=== PATIENT | female | born 1995 | race Hispanic/Latino ===

== ENCOUNTER 2018-04-05 02:56 | Inpatient (IN) | payer OTHER, SELFPAY ==
[2018-04-05 03:21] LABS: Bilirubin Negative (Negative); Blood, Urine Moderate (Negative); Clarity CLEAR (Clear); Glucose, Urine (Dipstick) 100 mg/dL (Negative); Leukocyte Negative (Negative); Nitrite Negative (Negative); Protein, Urine (Dipstick) Trace mg/dL (Neg-Trace); Specific Gravity, Urine 1.009 (1.002-1.036); Urobilinogen 0.2 mg/dL (0.2-1.0); pH, Urine 7.5 (5.0-9.0)
[2018-04-05 03:23] LABS: Bacteria/HPF None Seen HPF (None Seen); Pathc Cast-AUWi Flag 0.43 (0-2.49); RBC/HPF 21-50 HPF (0-3); WBC/HPF 0-3 HPF (0-3)
[2018-04-05 03:28] LABS: Pregnancy Test - Urine (BHCG) Negative (Negative); Pregu Control Background? CLEAR/WHITE (CLR/WHITE); Pregu Control Bar Appear? YES (CONTROL BAR); Specific Gravity 1.009 (1.002-1.036)
[2018-04-05 03:33] LABS: Hyaline Casts/LPF NONE SEEN LPF (0-3 Hyaline); Renal Epithelial None Seen HPF (0-3); Transitional Epithelial NONE SEEN HPF (0-3)
[2018-04-05 03:35] LABS: Hemoglobin 17.1 g/dL (12.0-16.0); Mean Corpuscular HGB CONC 36.2 g/dL (32.0-36.0); Mean Corpuscular Hemoglobin 33.9 pg (25.0-35.0); Mean Corpuscular Volume 93.8 fL (78.0-98.0); Mean Platelet Volume 7.7 fL (7.4-10.4); Platelet Count 234 thou/uL (130-400); RBC Distribution Width 11.9 % (11.5-14.5); Red Blood Cell (RBC) Count 5.04 mill/uL (4.00-5.20); White Blood Cell (WBC) Count 22.7 thou/uL (4.8-10.8)
[2018-04-05 03:45] LABS: ALT (SGPT) 26 U/L (8-55); AST (SGOT) 18 U/L (5-34); Albumin 5.1 g/dL (3.5-5.0); Alkaline Phosphatase 108 U/L (40-150); Anion Gap 22 mmol/L (10-20); BUN (Urea Nitrogen) 13 mg/dL (7.0-18.7); Bilirubin, Total 1.2 mg/dL (0.2-1.2); Calc. Creatinine Clearance 0 mL/min (70-130); Calcium 10.3 mg/dL (7.8-10.44); Carbon Dioxide 17 mmol/L (22-29); Chloride 104 mmol/L (98-107); Estimated GFR-MDRD 51; Globulin 3.2 g/dL (2.4-3.5); Glucose 129 mg/dL (70-105); Lipase 17 U/L (8-78); Potassium 4.1 mmol/L (3.5-5.1); Protein, Total 8.3 g/dL (6.0-8.3); Sodium 139 mmol/L (136-145)
[2018-04-05 04:19] LABS: Band 14 % (5-11); Lymphocytes 6 % (28-48); MDiff Complete? YES; Monocytes 7 % (0-4); Neutrophil 73 % (31-61)
[2018-04-05] MEDS ORDERED: Ondansetron PF 4 MG/2 ML Vial ONE (04:28)
[2018-04-05] MEDS ORDERED: Ketorolac Tromethamine 30 MG/ML VIAL ONE (07:01)
--- NOTE | 2018-04-05 08:45 | CT ---
PRELIMINARY REPORT/[facility]/EMERGENTY AFTER-HOURS PROCEDURE Addendum created by Arcadio Guevara MD on 04/05/2018 5:27 AM Central Time ([place]) Findings discus sed with TENA KELLER MD at time of interpretation. Initial Report created on 04/05/2018 5:17 AM Central Time ([place] & [place]) CT Abdomen and Pelvis With Intravenous Contrast EXAM DATE/TIME: 04/05/2018 4:44 AM CLINICAL HISTORY: 22 years old, female; Pain; Abdominal pain; Generalized; Prior surgery; Surgery date: 6+ months; Surg melvin type: Appendectomy; Patient HX: Er 2; Iv only; 22 yo f presents to ed with abdominal pain. PT rep orts sharp abdominal pain that started around 8 pm last night after she ate. PT reports nausea and vomiting that started yesterday morning, vomited around 20 times throughout the day and hasn't be en able to keep any food down. PT reports her mouth is really dry, reports dizziness, reports she has been urinating a little less than usual. PT denies constipation, denies diarrhea, denies vaginal dis charge, denies back pain. PT denies HX of similar pain, denies any sick contacts, denies HX of stds, denies eating any new/unusual foods, denies any chronic medical issues. PT reports she had her append ix removed when she was 14 years old. PT reports one previous , normal . Lmp was last week, PT reports control implant in arm that was put in about 2 years ago. TECHNIQUE: Axial computed tomography images of the abdomen and pelvis with intravenous contrast. Coronal reformatted images were created and reviewed. COMPARISON: No relevant prior studies available. FINDINGS: Lower thorax: There is incompletely visualized pneumomediastinum/medial left pneumothorax. Distal eso phagus is unremarkable. ABDOMEN: Liver: Hepatic steatosis. Gallbladder and bile ducts: Normal. No calcified stones. No ductal dilation. Pancreas: Normal. No ductal dilation. Spleen: Normal. No splenomegaly. Adrenals: Normal. No mass. Kidneys and ureters: Normal. No hydronephrosis. Stomach and bowel: No bowel wall thickening or intestinal obstruction. Appendix: Prior appendectomy. PELVIS: Bladder: Unremarkable as visualized. Reproductive: 1.7 cm follicle/cyst of the left ovary. ABDOMEN and PELVIS: Intraperitoneal space: Normal. No free air. No significant fluid collection. Bones/joints: No acute fracture. No dislocation. Soft tissues: Unremarkable. Vasculature: Normal. No abdominal aortic aneurysm. Lymph nodes: Normal. No enlarged lymph nodes. IMPRESSION: 1. There is incompletely visualized pneumomediastinum/medial left pneumothorax. Distal esophagus is u nremarkable. Recommend chest CT. 2. 1.7 cm follicle/cyst of the left ovary. Thank you for allowing us to participate in the care of your patient. Dictated and Authenticated by: Arcadio Guevara MD 04/05/2018 5:17 AM Central Time ([place] & [place]) FINAL REPORT CT ABDOMEN AND PELVIS WITH IV CONTRAST PERFORMED ON AN EMERGENCY BASIS: Date: 04/05/18 Time: 0446 hours HISTORY: Abdominal pain. Nausea and vomiting. FINDINGS: Findings agree with the preliminary report by [facility]. No evidence of bowel obstruction or inflammation. Postoperative changes at the cecum. Incompletely visualized gas in the mediastinum and left pleura s pace on the superiormost images. CT chest is pending. POS: [facility]
--- NOTE | 2018-04-05 08:56 | CT ---
PRELIMINARY REPORT/[facility]/EMERGENTY AFTER-HOURS PROCEDURE CT Chest Without Intravenous Contrast EXAM DATE/TIME: 04/05/2018 5:48 AM CLINICAL HISTORY: 22 years old, female; Abnormal findings; Abnormal radiologic exam of lung or chest; Patient HX: Er 2; Previous abd/pel scan shows mediastinal pneumothorax; Suggested CT scan of chest with oral contrast to eval for esophageal leak. TECHNIQUE: Axial computed tomography images of the chest without intravenous contrast. Coronal and sagittal reformatted images were created and reviewed. COMPARISON: CT Abdomen Pelvis W Con 04/05/2018 4:44:47 AM FINDINGS: Lungs: The lungs are clear. Pleural space: Loculated pneumothorax in the medial aspect of the left lung base is less likely. No o ther pneumothorax is identified. Heart: Normal. No cardiomegaly. No pericardial effusion. Mediastinum: There is pneumomediastinum. The mediastinum in the lower thorax demonstrates no signific ant change. Aorta: Normal. No aortic aneurysm. Lymph nodes: Unremarkable. No enlarged lymph nodes. Bones/joints: Unremarkable. No acute fracture. Soft tissues: Unremarkable. IMPRESSION: Pneumomediastinum of uncertain etiology. Loculated pneumothorax in the left lung base is less likely. Thank you for allowing us to participate in the care of your patient. Dictated and Authenticated by: Mahendra Lemus MD 04/05/2018 6:58 AM Central Time ([place] & [place]) FINAL REPORT EMERGENCY AFTER HOURS CT THORAX WITH ORAL CONTRAST: Date: 04/05/18 HISTORY: Abnormal CT scan abdomen, demonstrating pneumomediastinum at the visualize lung bases also obtained o n 04/05/18. IMPRESSION: 1. Pneumomediastinum of uncertain etiology. No extravasation of contrast is seen within the mediasti num. 2. There was also mention of a loculated pneumothorax at left lung base on prior CT of abdomen. This is probably related to pneumomediastinum as opposed to loculated pneumothorax at the left lung base. 3. Lungs are clear. 4. Limited evaluation of the mediastinal structures due to lack of intravenous contrast. 5. Residual contrast within the kidneys related to prior contrasted exam. Findings are in agreement with the preliminary report by [facility]. POS: [facility]
[2018-04-05] MEDS ORDERED: Ondansetron ODT 4 MG TAB ONE (11:14)
[2018-04-05] MEDS ORDERED: Pantoprazole 40 MG VIAL ONE (11:36)
[2018-04-05] MEDS ORDERED: Piperacillin/Tazobactam 3.375 GM VIAL ONE (11:36)
[2018-04-05] MEDS ORDERED: ISOVUE-370 76%-LOCM 1 ML ONE (12:54)
[2018-04-05] MEDS ORDERED: Iopamidol 370 76% 50 ML VIAL FS ONE (12:54)
[2018-04-05] MEDS ORDERED: MD-Gastroview 120 ML BOT ONE (13:05)
--- NOTE | 2018-04-05 13:21 | HP ---
PRIMARY CARE PROVIDER: None. Referred to [facility] by [facility]. HISTORY OF PRESENT ILLNESS: The patient developed nausea and vomiting yesterday morning, vomited abo ut 20 times and last night she developed severe generalized abdominal pain. She came to the hospital this morning. She has had no fever, but she has had chills and a question of sweats. She has had n o bowel movement at all with this. PAST MEDICAL HISTORY: None. MEDICATIONS: None. ALLERGIES: None. PAST SURGICAL HISTORY: Appendectomy at 14. Mother and father are alive and well. No inheritable di seases in her family. SOCIAL HISTORY: She is single. Smokes none. Drinks alcohol on weekends. REVIEW OF SYSTEMS: GENERAL: No headaches, dizziness or fainting. EYES: She has had blurred vision at times. She thinks she needs glasses. No double vision or flashing lights. EAR, NOSE, AND THROA T: No ear pain or drainage. No nasal bleeding. No trouble swallowing. CARDIAC: She has a vague d iscomfort in her chest that she describes as pleuritic with deep breathing, no paroxysmal nocturnal d yspnea or orthopnea. RESPIRATORY: No cough, wheezing or asthma. GASTROINTESTINAL: See present ill ness. GENITOURINARY: No hematuria, dysuria or nocturia. MUSCULOSKELETAL: No pain or swelling in h er arms or legs. NEUROLOGIC: No strokes, seizures or focal weakness. PSYCHIATRIC: No anxiety or d epression. SKIN: No bruises, bleeding or rash. HEME/LYMPH: No tender or swollen lymph nodes in ax illa, inguinal or cervical area. PHYSICAL EXAMINATION: GENERAL: She is an alert, pleasant, cooperative young woman in no distress. VITAL SIGNS: Blood pressure 130/71, pulse 89, respirations 18, temperature 98.2, O2 sat 98% on room air. HEENT: Examination of her head, eyes, ears, nose, and throat reveal pupils equal, round, and reactiv e to light. Extraocular movements are intact. Sclerae are white. Tympanic membranes clear. Nose i s clear. Oral mucous membranes are wet. NECK: Supple without jugular venous distention, adenopathy or thyromegaly. CHEST: Clear to auscultation and percussion. HEART: Regular rate and rhythm. First and second heart sounds are clear. There are no murmurs or g allops. ABDOMEN: Soft, bowel sounds are normal. There is no hepatosplenomegaly, no mass, no rebound, no bru its. She had very minimal periumbilical tenderness. Exam otherwise normal. EXTREMITIES: Reveal no cyanosis, clubbing or edema. SKIN: No bruises, bleeding or rash. HEME/LYMPH: No tender or swollen lymph nodes in axilla, inguinal or cervical area. PULSES: Carotid, radial, femoral, and dorsalis pedis pulses intact and symmetric. NEUROLOGICAL: Cranial nerves II-XII are intact. Deep tendon reflex is symmetric. LABORATORY DATA: Comp metabolic profile; sodium 139, potassium 4.1, CO2 17, BUN 13 and creatinine 1. 32. Blood sugar 129. Liver function tests normal. Urine; few red cells, 21-50. No white cells. W tray count 22,700 without left shift, hemoglobin 15.1, platelet count 234,000 IMAGING DATA: CT of the chest reveals pneumomediastinum reviewed by me. Abdomen and pelvis CT, cyst on left ovary and completely visualized pneumomediastinum. ADMITTING DIAGNOSES: 1. Pneumomediastinum. 2. Nausea and vomiting. 3. Abdominal pain. 4. Acute renal failure. PLAN: 1. Admit on IV fluids. 2. Blood cultures, IV Zosyn. 3. Intravenous pain medicines. 4. Will require consultations probably with GI and Cardiovascular Surgery.
--- NOTE | 2018-04-05 14:14 | CON ---
DATE OF CONSULTATION: 04/05/2018 REQUESTING PHYSICIAN: Susana Nogueira D.O. HISTORY OF PRESENT ILLNESS: This is a 22-year-old woman who presented to emergency departme nt today. The patient gives a history of insidious onset of nausea and multiple nonbilious emesis wh ich started yesterday morning upon awakening. The patient recorded over 20 episodes of small volume emesis. This was then followed by generalized abdominal pain. Patient denies any diarrhea, upper re spiratory symptoms, dyspnea or syncope. PAST MEDICAL HISTORY: Unremarkable. SURGICAL HISTORY: Pertinent for appendectomy at age 14. SOCIAL HISTORY: Patient is single, lives independently. 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 She admits to a binge drinking over the weekend. In fact, she had 18 beers on Thursday preceding the onset of emesis the . She denies any cigarette smoking or other illicit drug abuse. FAMILY HISTORY: Patient denies any family history of diabetes mellitus, hypertension, heart disease or cancer. PREHOSPITALIZATION MEDICATIONS: None except for implanted control. ALLERGIES: Patient denies any known drug allergies. REVIEW OF SYSTEMS: Ten point review of systems essentially unremarkable except for as stated in past medical history and chief complaint. PHYSICAL EXAMINATION: GENERAL: This reveals a 22-year-old normally developed woman who is otherwise coherent and interacti ve and appears stated age. The patient is alert and oriented x3, appears to be in no acute distress at the time of my evaluation. VITAL SIGNS: Currently includes blood pressure is 114/84, pulse is 92, respiratory rate is 18, tempe rature is 98.1 degrees Fahrenheit although present temperature was 99 degrees Fahrenheit. Oxygen sat uration currently is 97% on room air. HEENT: Reveals normocephalic and atraumatic. Pupils are equal, round, reactive to light and accommo dation. Extraocular muscles are intact bilaterally. No sclerae icterus present. Oral mucosa is pin k and moist. No lesions are noted. NECK: Supple. No palpable lymphadenopathy or thyromegaly present. HEART: Reveals regular rate and rhythm, no murmurs or gallops auscultated. LUNGS: Clear to auscultation bilaterally. Her breathing is regular and unlabored. ABDOMEN: Soft with mild infraumbilical right lower quadrant tenderness to palpation with no gross re bound tenderness present. Liver and spleen are nonpalpable below costal margins. EXTREMITIES: Reveals 2+ radial and pedal pulses bilaterally. No ankle edema is present. NEUROLOGIC: Examination reveals no focal deficits present. PERTINENT LABORATORY DATA: Today includes CBC with 22,700 white blood cells, hemoglobin and hematocr it are 17.1 and 47.3 respectively, platelet count is 234,000. Metabolic profile; sodium 139, potassi um is 4.1, chloride is 104, bicarbonate is 17, BUN 13, creatinine is 1.32, glucose 129. Total biliru bin is 1.2, AST and ALT 18 and 26 respectively. Alkaline phosphatase 108. Serum lipase is normal at 17. IMAGING DATA: 1. I have personally reviewed the CT scan of the abdomen and pelvis which is unremarkable for any ac [place] intraabdominal pathology. There is, however, a small pneumomediastinum which was incompletely de fined. 2. CT scan of the chest is remarkable for left pneumomediastinum. There is no inflammation around t he esophagus or trachea. 3. Upper GI was also performed which reveals no contrast extravasation to suggest esophageal injury. IMPRESSION: Small pneumomediastinum of undetermined etiology, likely secondary to small Osiris-Azul s tear. Currently, patient is essentially asymptomatic. PLAN: 1. No acute surgical indication for this patient at this time. I will continue with clear liquid di et and serial physical examination. 2. Recommend starting a broad spectrum antibiotic therapy during patient's hospital admission. [facility] will continue to follow along with this patient and make further recommendations as nav ellis.
--- NOTE | 2018-04-05 14:35 | RAD ---
SINGLE CONTRAST UPPER GI: Date: 04/05/18 CLINICAL HISTORY: Pneumomediastinum. Recent recurrent episodes of vomiting. FINDINGS: Backbreaker imaging does reveal evidence of pneumomediastinum. Upon administration of radiopaque contrast, there is free passage through the esophagus and into the stomach without abnormal leakage. Contrast o pacified stomach and proximal small bowel are unremarkable. IMPRESSION: 1. No fluoroscopic evidence of esophageal tear. 2. Pneumomediastinum is again seen. Case discussed with patient's surgeon, Sonu Su D.O., at time of interpretation. CODE CR. POS: [facility]
[2018-04-05] MEDS ORDERED: traMADol HCl 50 MG TAB PO PRN (15:55)
[2018-04-05] MEDS ORDERED: Acetaminophen 650 MG Suppository PR PRN (15:55)
[2018-04-05] MEDS: Sodium Chloride 0.9% 1,000 ML IV SCH (16:16)
[2018-04-05 16:43] VITALS: BMI 22.7
--- NOTE | 2018-04-05 16:57 | CON ---
DATE OF CONSULTATION: 04/05/2018 GI INPATIENT CONSULTATION NOTE REQUESTING PHYSICIAN: Dr. Barnes. REASON FOR CONSULTATION: Pneumomediastinum with nausea and vomiting. HISTORY OF PRESENT ILLNESS: Quynh Aguilar is a very pleasant 22-year-old woman with no significant p ast medical history. She had an appendectomy at age 14. She has no chronic gastrointestinal symptom s. Yesterday morning, she had the acute onset of nausea and vomiting. There has been some associate d periumbilical abdominal discomfort with this, but she estimates she vomited over 20 times since sym ptom onset yesterday morning. This morning, she additionally started to have some pressure type pain in the chest and presented for further evaluation. Through all of this, there has been no diarrhea or constipation. No fever. She denies any sick contacts. She denies any nonsteroidal anti-inflamma tory drug use. Her weight has been stable recently. Upon presentation, she was found to have leukoc ytosis with WBC up to 22.[address] imaging of the chest, abdomen, and pelvis demonstrates pneumomedias tinum. The patient has been started on IV Zosyn. Her nausea and pain are well controlled. At this point, she is being admitted to the hospital. Dr. Su has also seen her. She had an upper GI cont rast series just performed. The official read is not back on this, but on my review of the images, i t does not demonstrate any contrast extravasation from the esophagus. REVIEW OF SYSTEMS: Full review of systems including constitutional, head, eyes, ears, nose, throat, GI, , cardiovascular, respiratory, musculoskeletal, and neurologic systems is negative except as no ashlee in the HPI. PAST MEDICAL HISTORY: None. PAST SURGICAL HISTORY: Appendectomy at age 14. ALLERGIES: None. MEDICATIONS: None. FAMILY HISTORY: Negative for gastrointestinal malignancy. SOCIAL HISTORY: She is single. No tobacco or alcohol use. She has a Nexplanon implant for contrace ption. PHYSICAL EXAMINATION: VITAL SIGNS: Blood pressure 130/71, pulse 89, temperature 98.2, 98% oxygen saturation on room air. GENERAL: Awake, alert, and oriented, in no acute distress. SKIN: No jaundice, no rashes were palpable. EYES: No scleral icterus. Extraocular movements intact. ENT: Mucous membranes moist, no oral lesions. LYMPH: No submandibular or supraclavicular lymphadenopathy. THYROID: Nontender to palpation. HEART: Regular rate and rhythm. LUNGS: Clear to auscultation bilaterally. ABDOMEN: Bowel sounds are present, soft, some mild tenderness in the periumbilical area, but no guar ding, rebound tenderness. EXTREMITIES: No peripheral edema. VESSELS: Radial pulses 2+ bilaterally. NEUROLOGICAL: Cranial nerves II-XII intact bilaterally. No focal deficits. LABORATORY STUDIES: WBC elevated to 22.7, hemoglobin 17.1, platelets 234. Sodium 139, potassium 4.1 , BUN 13, creatinine 1.32, total bilirubin 1.2, alkaline phosphatase 108, AST 18, ALT 26, lipase 17. Urine test negative, 21-50 urine RBCs, 0-3 urinary WBCs. ASSESSMENT AND PLAN: 1. Pneumomediastinum. 2. Nausea and vomiting, acute. The patient's pneumomediastinum likely does represent a small esopha geal perforation, but note the contrast esophagram demonstrates no leak. I have seen the patient and also discussed the case with Dr. Su. I do not think there is anything to be gained by endoscopic investigation, in fact, I would avoid this if at all possible. The patient will be on a clear liqui d diet with IV antibiotics and observation overnight. The patient is advised to let us know if she h as worsening symptoms. Continue symptomatic control for nausea. GI will follow along. Thank you for the consultation. Please call with questions or concerns.
[2018-04-05] MEDS: Piperacillin/Tazobactam 3.375 GM in Sodium Chloride 0.9% 100 ML IVPB SCH ×2 (17:27→23:32)
[2018-04-06] MEDS: Sodium Chloride 0.9% 1,000 ML IV SCH ×2 (01:29→07:14)
[2018-04-06 04:41] LABS: #Eosinphils 0.1 thou/uL (0.0-0.7); #Lymphocytes 2.3 thou/uL (1.20-3.40); #Monocytes 0.7 thou/uL (0.11-0.59); #Neutrophils 6.9 thou/uL (1.40-6.50); %Basophils 0.3 % (0.0-1.0); %Eosinophils 1.2 % (0.0-10.0); %Lymphocytes 22.4 % (28.0-48.0); %Monocytes 6.9 % (0.0-4.0); %Neutrophils 69.2 % (31.0-61.0); Mean Corpuscular HGB CONC 35.2 g/dL (32.0-36.0); Mean Corpuscular Hemoglobin 33.9 pg (25.0-35.0); Mean Corpuscular Volume 96.1 fL (78.0-98.0); Mean Platelet Volume 7.2 fL (7.4-10.4); Platelet Count 143 thou/uL (130-400); RBC Distribution Width 11.9 % (11.5-14.5); Red Blood Cell (RBC) Count 3.84 mill/uL (4.00-5.20)
[2018-04-06] MEDS: Piperacillin/Tazobactam 3.375 GM in Sodium Chloride 0.9% 100 ML IVPB SCH ×4 (05:34→23:57)
[2018-04-06 05:51] LABS: Anion Gap 13 mmol/L (10-20); BUN (Urea Nitrogen) 10 mg/dL (7.0-18.7); Calc. Creatinine Clearance 50 mL/min (70-130); Calcium 8.7 mg/dL (7.8-10.44); Carbon Dioxide 19 mmol/L (22-29); Chloride 113 mmol/L (98-107); Estimated GFR-MDRD 44; Glucose 91 mg/dL (70-105); Potassium 3.7 mmol/L (3.5-5.1); Sodium 141 mmol/L (136-145)
[2018-04-06] MEDS: Ondansetron PF 4 MG/2 ML Vial IVP PRN ×3 (07:13→20:40)
[2018-04-06] MEDS: Sodium Bicarbonate 100 MEQ in Dextrose 5% in Water 1,000 ML IV SCH ×2 (08:31→21:05)
[2018-04-06] MEDS: Pantoprazole 40 MG VIAL IVP SCH ×2 (09:01→20:45)
--- NOTE | 2018-04-06 09:25 | RAD ---
RADIOGRAPH OF CHEST FRONTAL VIEW: Date: 04/06/18 CLINICAL HISTORY: Pneumomediastinum, follow-up. FINDINGS: Mild degree of pneumomediastinum remains. No free air beneath the hemidiaphragms. Lungs are clear. Ca rdiac silhouette is normal in size. Osseous structures are intact. IMPRESSION: Mild pneumomediastinum remains. POS: [facility]
--- NOTE | 2018-04-06 10:21 | PRG ---
DATE OF SERVICE: 04/06/2018 SUBJECTIVE: Ms. Aguilar is a 22-year-old woman admitted yesterday following multiple bouts o f emesis associated with pneumomediastinum. The patient had a negative esophagram. She was admitted for serial physical examination. She was placed on clear liquid diet overnight. This morning, she awoke with 8/10 chest pain with deep inspiration. She denies any abdominal pain. Denies any fevers or chills. PHYSICAL EXAMINATION: VITAL SIGNS: This morning includes blood pressure 119/86, pulse 64, respiratory rate is 16, maximum temperature in the last 24 hours is 98.4 degrees Fahrenheit, oxygen saturation 98% on room air. HEART: Reveals regular rate and rhythm. LUNGS: Clear to auscultation bilaterally. ABDOMEN: Soft, nontender and nondistended. NEUROLOGIC: Reveals no focal deficits present. LABORATORY DATA: Laboratory findings today includes CBC with markedly improved white blood cell coun t at 10,000, in contrast to 22,700 yesterday. Hemoglobin and hematocrit are stable at 13.0 and 36.9 respectively. Platelet count is also stable at 143,000. Metabolic profile; sodium 141, potassium 3. 7, chloride is 113, bicarbonate is 19, BUN 10, creatinine is now elevated at 1.50. This is a change from yesterday's BUN and creatinine of 13 and 1.32 respectively. Please note that the patient's last hospitalization in 2012, creatinine was normal at 0.75. IMAGING DATA: I have personally reviewed chest x-ray, which was obtained this morning which reveals small residual pneumomediastinum. IMPRESSION: 1. Post-admission day #1, status post poly emesis. 2. Residual small pneumomediastinum. 3. Acute kidney injury. This is likely secondary to contrast nephropathy induced acute tubular necr osis. PLAN: 1. Patient was placed on bowel rest. We will continue IV antibiotics. 2. I will start bicarbonate infusion and monitor patient's urinary output and repeat chemistry tomor row for resolution of this acute kidney injury. Above findings and plan discussed with the patient who indicates understanding of information given. I have answered her questions.
[2018-04-06] MEDS: traMADol HCl 50 MG TAB PO PRN ×2 (11:11→18:33)
--- NOTE | 2018-04-06 12:37 | PDOC.PN ---
- Subjective Encounter Start Date: 04/06/18 Encounter Start Time: 12:34 Subjective: min abd discomfort - Objective Resuscitation Status: Resuscitation Status FULL:Full Resuscitation MAR Reviewed: Yes Vital Signs & Weight: Vital Signs (12 hours) Temp Pulse Resp BP Pulse Ox 04/06/18 11:55 98.3 F 54 L 18 98/57 L 98 04/06/18 10:45 98.3 F 73 16 111/72 99 04/06/18 07:46 98.4 F 64 16 119/86 98 04/06/18 07:43 97.5 F L 66 16 04/06/18 03:20 97.5 F L 66 16 116/66 100 Weight Weight 116 lb 6.4 oz I&O: 04/05/18 04/06/18 04/07/18 06:59 06:59 06:59 Intake Total 2295 Output Total 675 Balance 1620 Result Diagrams: 04/06/18 04:27 04/06/18 04:27 Radiology Reviewed by me: Yes (cxr-pneumomediastinum stable) Phys Exam - Physical Examination Neck: no JVD Respiratory: clear to auscultation bilateral Cardiovascular: RRR, no significant murmur Gastrointestinal: soft, positive bowel sounds Musculoskeletal: no edema Dx/Plan (1) Pneumomediastinum Code(s): J98.2 - INTERSTITIAL EMPHYSEMA Status: Acute (2) Nausea & vomiting Code(s): R11.2 - NAUSEA WITH VOMITING, UNSPECIFIED Status: Acute Qualifiers: Vomiting type: unspecified Vomiting Intractability: unspecified Qualified Code(s): R11.2 - Nausea with vomiting, unspecified (3) Acute kidney failure Status: Acute Qualifiers: Acute renal failure type: unspecified Qualified Code(s): N17.9 - Acute kidney failure, unspecified (4) Abdominal pain Code(s): R10.9 - UNSPECIFIED ABDOMINAL PAIN Status: Acute Qualifiers: Abdominal location: generalized Qualified Code(s): R10.84 - Generalized abdominal pain - Plan NPO, iv fluids, rpt BMP in AM -: cont iv antibx -: discussed with Dr Su * .
--- NOTE | 2018-04-06 14:09 | PRG ---
DATE OF SERVICE: 04/06/2018 SUBJECTIVE: Ms. Aguilar is feeling a bit better today. This morning, she did have some temporary wor sening of chest pain, but no shortness of breath, no cough, no fever. She complains of some mild per iumbilical abdominal discomfort. She was made n.p.o. this morning and continues on IV antibiotics. No further nausea or vomiting. OBJECTIVE: VITAL SIGNS: Temperature 98.3, pulse 54, blood pressure 98/57, 98% oxygen saturation on room air. GENERAL: No acute distress. HEART: Regular rate and rhythm. LUNGS: Clear to auscultation bilaterally. ABDOMEN: Soft and nontender to palpation. EXTREMITIES: No peripheral edema. LABORATORY STUDIES AND IMAGING: WBC came down to 10.0, hemoglobin 13.0, platelets 143. Sodium 141, potassium 3.7, BUN 10, creatinine 1.50. Chest x-ray from this morning demonstrates a mild residual p neumomediastinum and is otherwise normal. Official read on her upper GI contrast exam from yesterday confirms no fluoroscopic evidence of any esophageal tear, free passage of contrast through the esoph danielle and into the stomach without leakage. ASSESSMENT AND PLAN: 1. Pneumomediastinum. 2. Nausea and vomiting, improved. The patient continues on IV antibiotics and bowel rest. Still no indication for upper endoscopic examination in this context. Appreciate surgical service assistance . GI will continue to follow. Please call with questions or concerns.
[2018-04-06] MEDS ORDERED: Promethazine HCl 25 MG in Sodium Chloride 0.9% 50 ML IVPB PRN (22:38)
[2018-04-07] MEDS: Piperacillin/Tazobactam 3.375 GM in Sodium Chloride 0.9% 100 ML IVPB SCH (05:47)
[2018-04-07 06:09] LABS: Anion Gap 10 mmol/L (10-20); BUN (Urea Nitrogen) 7 mg/dL (7.0-18.7); Calc. Creatinine Clearance 87 mL/min (70-130); Calcium 8.8 mg/dL (7.8-10.44); Carbon Dioxide 32 mmol/L (22-29); Chloride 102 mmol/L (98-107); Estimated GFR-MDRD 84; Glucose 104 mg/dL (70-105); Magnesium 1.9 mg/dL (1.7-2.2); Sodium 141 mmol/L (136-145)
[2018-04-07 06:13] LABS: Potassium 2.9 mmol/L (3.5-5.1)
[2018-04-07] MEDS ORDERED: Potassium Chloride 40 MEQ in Premix Bag 1 BAG IVPB SCH (06:15)
[2018-04-07 06:47] LABS: Hemoglobin 12.9 g/dL (12.0-16.0); Mean Corpuscular HGB CONC 35.7 g/dL (32.0-36.0); Mean Corpuscular Volume 95.2 fL (78.0-98.0); Mean Platelet Volume 7.6 fL (7.4-10.4); Platelet Count 161 thou/uL (130-400); RBC Distribution Width 11.6 % (11.5-14.5); Red Blood Cell (RBC) Count 3.78 mill/uL (4.00-5.20); White Blood Cell (WBC) Count 8.4 thou/uL (4.8-10.8)
[2018-04-07 07:17] LABS: Band 7 % (5-11); Eosinophils 2 % (0-10); Lymphocytes 26 % (28-48); MDiff Complete? YES; Monocytes 2 % (0-4); Neutrophil 60 % (31-61); RBC Morphology Normal; Reactive Lymphocytes 3 % (0-10)
[2018-04-07] MEDS: Potassium Chloride 20 MEQ in Premix Bag 1 BAG IVPB SCH ×2 (08:35→10:58)
[2018-04-07] MEDS: Sodium Bicarbonate 100 MEQ in Dextrose 5% in Water 1,000 ML IV SCH (08:35)
--- NOTE | 2018-04-07 10:20 | PDOC.PN ---
- Subjective Encounter Start Date: 04/07/18 Encounter Start Time: 10:18 Subjective: no nausea, pain - Objective Resuscitation Status: Resuscitation Status FULL:Full Resuscitation MAR Reviewed: Yes Vital Signs & Weight: Vital Signs (12 hours) Temp Pulse Resp BP 04/07/18 07:45 97.9 F 65 18 100/63 04/07/18 00:04 97.9 F 65 18 106/77 Weight Weight 116 lb 6.4 oz I&O: 04/06/18 04/07/18 04/08/18 06:59 06:59 06:59 Intake Total 2295 2340 Output Total 675 5405 Balance 1620 -135 Result Diagrams: 04/07/18 04:50 04/07/18 04:50 Phys Exam - Physical Examination Neck: no JVD Respiratory: clear to auscultation bilateral Cardiovascular: RRR, no significant murmur Gastrointestinal: soft, positive bowel sounds Musculoskeletal: no edema Dx/Plan (1) Pneumomediastinum Code(s): J98.2 - INTERSTITIAL EMPHYSEMA Status: Acute (2) Nausea & vomiting Code(s): R11.2 - NAUSEA WITH VOMITING, UNSPECIFIED Status: Resolved Qualifiers: Vomiting type: unspecified Vomiting Intractability: unspecified Qualified Code(s): R11.2 - Nausea with vomiting, unspecified (3) Acute kidney failure Status: Resolved Qualifiers: Acute renal failure type: unspecified Qualified Code(s): N17.9 - Acute kidney failure, unspecified (4) Abdominal pain Code(s): R10.9 - UNSPECIFIED ABDOMINAL PAIN Status: Resolved Qualifiers: Abdominal location: generalized Qualified Code(s): R10.84 - Generalized abdominal pain (5) Hypokalemia Code(s): E87.6 - HYPOKALEMIA Status: Acute - Plan replace K+ -: clear liquids -: DC antobx -: rpt BMP in am * .
[2018-04-07] MEDS: Pantoprazole 40 MG VIAL IVP SCH (10:58)
--- NOTE | 2018-04-07 12:34 | PRG ---
DATE OF SERVICE: 04/07/2018 SUBJECTIVE: Quynh is feeling a lot better today. She has had no recurrence of chest or abdominal p ain, no nausea or vomiting. She was advanced to a clear liquid diet this morning and she has been to lerating this just fine for breakfast and also lunch. She has been afebrile. OBJECTIVE: VITAL SIGNS: Temperature 97.9, pulse 65, blood pressure 100/63, 95% oxygen saturation on room air. GENERAL: No acute distress. HEART: Regular rate and rhythm. LUNGS: Clear to auscultation bilaterally. ABDOMEN: Soft and nontender to palpation. EXTREMITIES: No peripheral edema. LABORATORY STUDIES: WBC down to 8.4, hemoglobin 12.9, platelets 161. Sodium 141, potassium 2.9, BUN 7, creatinine 0.86. ASSESSMENT AND PLAN: 1. Pneumomediastinum, clinically stable. Antibiotics were discontinued. 2. Nausea and vomiting, resolved. 3. Acute kidney injury, resolved. Ms. Aguilar is tolerating her clear liquid diet today and antibiotics have been stopped. It appears t his episode is resolving. Still no indication for endoscopic exam. Further dietary advancement per Surgical Service. GI will sign off at this time, but please call back with any questions or concerns .
--- NOTE | 2018-04-07 12:47 | PRG ---
DATE OF SERVICE: 04/07/2018 SUBJECTIVE: Ms. Aguilar is awake and alert today. She denies any chest or abdominal pain. She has adequate urinary output. OBJECTIVE: VITAL SIGNS: Today includes blood pressure 100/63, pulse 55, respiratory rate is 18, temperature 98.7 degrees Fahrenheit, oxygen saturation is 95% on room air. HEART: Reveals regular rate and rhythm. LUNGS: Clear to auscultation bilaterally. Breathing regular and unlabored. ABDOMEN: Soft, nontender, nondistended. NEUROLOGIC: Reveals no focal deficits present. LABORATORY DATA: Includes CBC with 8400 white blood cells, hemoglobin and hematocrit is 12.9 and 36.0 respectively. Platelet count is 161,000. Metabolic profile: Sodium 141, potassium is 2.9, chloride is 102, bicarbonate is 32, BUN 7, creatinine 0.86, glucose 104, magnesium is 1.9, phosphorus is 4.0. IMPRESSION: 1. Resolved pneumomediastinum. Patient currently has no chest or abdominal pain. 2. Resolved acute kidney injury. 3. Acute hypokalemia likely secondary to metabolic alkalosis . PLAN: We will discontinue the bicarbonate infusion. The patient will be started on a clear liquid diet and monitored for another 24 hours. She will be discharged home tomorrow if no onset of chest or abdominal pain. NIRMAL
[2018-04-07 14:27] LABS: Potassium 3.1 mmol/L (3.5-5.1)
[2018-04-08 06:09] LABS: #Eosinphils 0.1 thou/uL (0.0-0.7); #Lymphocytes 2.3 thou/uL (1.20-3.40); #Monocytes 0.4 thou/uL (0.11-0.59); #Neutrophils 3.9 thou/uL (1.40-6.50); %Basophils 0.7 % (0.0-1.0); %Eosinophils 2.1 % (0.0-10.0); %Monocytes 5.5 % (0.0-4.0); %Neutrophils 57.8 % (31.0-61.0); Hemoglobin 14.8 g/dL (12.0-16.0); Mean Corpuscular Hemoglobin 32.9 pg (25.0-35.0); Mean Corpuscular Volume 94.2 fL (78.0-98.0); Mean Platelet Volume 7.6 fL (7.4-10.4); Platelet Count 195 thou/uL (130-400); RBC Distribution Width 11.6 % (11.5-14.5); Red Blood Cell (RBC) Count 4.49 mill/uL (4.00-5.20); White Blood Cell (WBC) Count 6.7 thou/uL (4.8-10.8)
[2018-04-08 06:20] LABS: Anion Gap 13 mmol/L (10-20); BUN (Urea Nitrogen) 8 mg/dL (7.0-18.7); Calc. Creatinine Clearance 100 mL/min (70-130); Calcium 9.5 mg/dL (7.8-10.44); Carbon Dioxide 25 mmol/L (22-29); Chloride 106 mmol/L (98-107); Estimated GFR-MDRD Greater than 90; Glucose 98 mg/dL (70-105); Magnesium 2.1 mg/dL (1.7-2.2); Phosphorus 3.5 mg/dL (2.3-4.7); Potassium 3.2 mmol/L (3.5-5.1); Sodium 141 mmol/L (136-145)
--- NOTE | 2018-04-08 08:47 | DIS ---
TRANSFER OF CARE NOTE PRIMARY CARE PHYSICIAN: No PCP. DISCHARGE DISPOSITION: Home. FINAL DIAGNOSES: 1. Pneumomediastinum. 2. Abdominal pain. 3. Nausea and vomiting. 4. Acute kidney failure. 5. Hypokalemia. DISCHARGE MEDICATIONS: None. CODE STATUS: FULL. DIET: As tolerated. HOSPITAL COURSE: The patient was seen in the emergency department with nausea and vomiting, found to have pneumomediastinum on abdominal CT which was confirmed on chest CT. Her initial laboratory; cre atinine 1.32, BUN 13, metabolic acidosis with a CO2 of 17. CBC had a markedly elevated white count a t 22 7, hemoglobin 17.1, platelet count 234,000. She was treated with IV fluids and bowel rest and w as initially put on steroids. Dr. Su, General Surgery saw her in consultation, as did Dr. Logan love, Gastroenterology, on 04/05/2018. An upper GI series was done which revealed no fluoroscopic jaxon dence of esophageal tear, no leakage. The patient was treated with IV fluids. Her acute renal failu re, resolved. Her white count returned to normal on 04/06/2018 at 10.0, it has continued there. Her serial creatinines were 1.32, 1.50, 0.86, 0.75. Her abdomen is benign for 2 days. She is toleratin g p.o. intake. She is being discharged home. She has been instructed that she needs to find a PCP f or followup, that if she has any recurrent abdominal pain, chest pain, fever, chills to return urgent ly to the emergency department. No procedures were done.
[2018-04-08 13:09] VITALS: BP 109/71; TEMP 98.1
--- NOTE | 2018-04-08 13:47 | PRG ---
DATE OF SERVICE: 04/08/2018 SUBJECTIVE: Jeff is a 22-year-old woman who was admitted 3 days previously following multiple bout s of emesis associated with pleuritic chest pain. CT scan of the abdomen and chest were obtained which revealed pneumomediastinum. The patient had a n egative esophagram. She was placed on clear liquid diet the day before yesterday and endorsed recurr ent chest pain as a result was placed on bowel rest for 24 hours. She was then started on a clear liquid diet in the morning. She tolerated that well and was advanced to a general diet by the end of yesterday. Overnight, the patient has done well. This morning, she reports no chest or abdominal pain. She denies any dyspnea or syncope. OBJECTIVE: HEART: Reveals regular rate and rhythm. No murmurs or gallops auscultated. CHEST: Clear to auscultation bilaterally. ABDOMEN: Soft, nontender, nondistended. LABORATORY DATA: Today includes a normal CBC with 6700 white blood cells, hemoglobin and hematocrit 14.8 and 42.3 respectively. Platelet count is 195,000. Metabolic profile: Sodium 141, potassium 3. 2, chloride is 106, bicarbonate 25, BUN 8, creatinine 0.75, glucose 98, magnesium 2.1, phosphorus 3.5 . ASSESSMENT: 1. Resolved pneumomediastinitis. 2. Resolved acute kidney injury. 3. The patient is stable for discharge from a surgical standpoint.
== END 2018-04-08 13:50 | disposition home or self-care (01) | DRG 200 ==
LOC: ERS 02:56 → 2SW 13:33 → OBSVTOIN 13:33 → 3SE 04-06 10:36
PROVIDERS: ADMIT Internal Medicine; ATTEND Internal Medicine
DX: J98.2 Interstitial emphysema (principal); N17.9 Acute kidney failure, unspecified; E87.6 Hypokalemia; R11.2 Nausea with vomiting, unspecified
CPT/HCPCS: 36415; 71045; 71250; 74177; 74241; 80048; 80053; 81003; 81015; 81025; 83690; 83735; 84100; 85007; 85025; 85027; 87040; 96361; 96365; 96375; 99406; C9113; J1885; J2270; J2405; J2543; J2550; J3480; J7050; J7070; Q0162

== ENCOUNTER 2018-10-29 10:38 | Emergency (ER) | payer SELFPAY | END 2018-10-29 12:28 | disposition home or self-care (01) | LOC: ERS 10:38 | DX: J18.1 Lobar pneumonia, unspecified organism (principal) | CPT/HCPCS: 99282 ==

== ENCOUNTER 2018-11-01 07:56 | Emergency (ER) | payer SELFPAY ==
--- NOTE | 2018-11-01 08:43 | RAD ---
CHEST TWO VIEWS: HISTORY: Chest pain. COMPARISON: Radiograph from 04/06/2018. FINDINGS: The lungs are clear. No pneumothorax or effusion. The cardiac silhouette and mediastinal contours a re within normal limits. No acute osseous abnormality. IMPRESSION: No acute intrathoracic abnormality. POS: [facility]
== END 2018-11-01 08:49 | disposition home or self-care (01) ==
LOC: ERS 07:56
DX: J06.9 Acute upper respiratory infection, unspecified (principal)
CPT/HCPCS: 71046

== ENCOUNTER 2019-05-12 08:54 | Emergency (ER) | payer SELFPAY ==
[2019-05-12] MEDS ORDERED: Ketorolac Tromethamine 60 MG/2 ML VIAL ONE (09:30)
--- NOTE | 2019-05-12 09:38 | RAD ---
XR Knee Lt 4 View STANDARD HISTORY: Left knee pain COMPARISON: None. FINDINGS: There is minimal medial compartment joint space narrowing. No joint effusion or fracture. IMPRESSION: Essentially unremarkable knee, questionable minimal medial compartment narrowing.
== END 2019-05-12 10:36 | disposition home or self-care (01) ==
LOC: ERS 08:54
DX: S86.912A Strain of unspecified muscle(s) and tendon(s) at lower leg level, left leg, initial encounter (principal); X58.XXXA Exposure to other specified factors, initial encounter
CPT/HCPCS: 96372; J1885

== ENCOUNTER 2019-05-26 14:25 | Emergency (ER) | payer SELFPAY ==
[2019-05-26 15:33] LABS: #Lymphocytes 1.8 thou/uL (1.20-3.40); #Monocytes 0.5 thou/uL (0.11-0.59); #Neutrophils 8.2 thou/uL (1.40-6.50); %Basophils 0.1 % (0.0-1.0); %Eosinophils 0.1 % (0.0-10.0); %Lymphocytes 17.1 % (21.0-51.0); %Monocytes 4.9 % (0.0-10.0); %Neutrophils 77.8 % (42.0-75.0); Hemoglobin 15.4 g/dL (12.0-16.0); Mean Corpuscular HGB CONC 35.6 g/dL (32.0-36.0); Mean Corpuscular Hemoglobin 32.4 pg (27.0-31.0); Mean Corpuscular Volume 90.8 fL (78.0-98.0); Mean Platelet Volume 7.6 fL (7.4-10.4); Platelet Count 232 thou/uL (130-400); RBC Distribution Width 11.1 % (11.5-14.5); Red Blood Cell (RBC) Count 4.76 mill/uL (4.20-5.40); White Blood Cell (WBC) Count 10.5 thou/uL (4.8-10.8)
[2019-05-26 15:40] LABS: Pregnancy Test - Urine (BHCG) Negative (Negative); Pregu Control Background? CLEAR/WHITE (CLR/WHITE); Pregu Control Bar Appear? YES (CONTROL BAR); Specific Gravity 1.021 (1.002-1.036)
[2019-05-26 15:45] LABS: Bacteria/HPF None Seen HPF (None Seen); Bilirubin Negative (Negative); Blood, Urine Negative (Negative); Clarity Clear (Clear); Glucose, Urine (Dipstick) Normal (Negative); Leukocyte 250 Leu/uL (Negative); Nitrite Negative (Negative); Protein, Urine (Dipstick) Negative (Neg-Trace); RBC/HPF 0-3 HPF (0-3); Urobilinogen Normal mg/dL (Less than 2); WBC/HPF 0-3 HPF (0-3)
[2019-05-26 15:57] LABS: ALT (SGPT) 27 U/L (8-55); AST (SGOT) 17 U/L (5-34); Albumin 4.6 g/dL (3.5-5.0); Alkaline Phosphatase 116 U/L (40-110); Anion Gap 10 mmol/L (10-20); BUN (Urea Nitrogen) 7 mg/dL (7.0-18.7); Bilirubin, Total 0.6 mg/dL (0.2-1.2); Calc. Creatinine Clearance 0 mL/min (70-130); Calcium 9.6 mg/dL (7.8-10.44); Carbon Dioxide 23 mmol/L (22-29); Chloride 106 mmol/L (98-107); Estimated GFR-MDRD Greater than 90; Globulin 2.8 g/dL (2.4-3.5); Glucose 110 mg/dL (70-105); Lipase 33 U/L (8-78); Potassium 3.4 mmol/L (3.5-5.1); Protein, Total 7.4 g/dL (6.0-8.3); Sodium 136 mmol/L (136-145)
[2019-05-26] MEDS ORDERED: Ondansetron PF 4 MG/2 ML Vial ONE (17:26)
[2019-05-26] MEDS ORDERED: Ketorolac Tromethamine 30 MG/ML VIAL ONE (17:26)
--- NOTE | 2019-05-26 18:01 | CT ---
EXAM: CT ABDOMEN AND PELVIS HISTORY: Abdominal pain and bloating. Pain. COMPARISON: None. Procedure: Multiple contiguous axial images were obtained and a CT of the abdomen and pelvis with IV contrast. C oronal reformats were performed. FINDINGS: Lower Chest: within normal limits. Vessels: Normal caliber aorta Heart: Normal heart size. No pericardial effusion Abdomen: Portal vein:Patent Gallbladder: No calcified gallstones. Normal caliber wall. Liver: within normal limits. Pancreas: within normal limits. Spleen: within normal limits. Adrenals: within normal limits. Kidneys: Symmetric enhancement. No obstructive uropathy. Peritoneum: No ascites or free air, no fluid collection. Bowel: Limited evaluation due to the lack of oral contrast administration. No evidence of bowel obstr uction. Ileocecal junction is unremarkable. Surgically absent appendix. Scattered fecal material in a nondistended, nondilated colon. Mesentery and Retroperitoneum: No enlarged mesenteric or retroperitoneal lymph nodes. There are a few scattered upper normal mesenteric lymph nodes. Findings are similar to the previous examination and is of doubtful significance Abdominal Wall: Small umbilical hernia containing mesenteric fat. Pelvis: Reproductive Organs: Uterus and left adnexa are unremarkable. 2.2 x 1.8 cm hypodensity in the right a dnexa may represent a right ovarian dominant follicle. Pelvis: No mass, lymphadenopathy, free air or free fluid. Bladder: within normal limits. Bones: within normal limits. IMPRESSION: 1. No acute abnormality in the abdomen or pelvis. 2. Dominant follicle right ovary. Additional imaging if clinically warranted.
[2019-05-26] MEDS ORDERED: ISOVUE-370 76%-LOCM 1 ML ONE (18:19)
== END 2019-05-26 19:15 | disposition home or self-care (01) ==
LOC: ERS 14:25
DX: R10.31 Right lower quadrant pain (principal); F32.9 Major depressive disorder, single episode, unspecified
CPT/HCPCS: 36415; 74177; 80053; 81003; 81015; 81025; 83690; 85025; 96361; 96374; 96375; J1885; J2405; Q9966

== ENCOUNTER 2019-09-09 11:51 | Emergency (ER) | payer MEDICAID, SELFPAY ==
[2019-09-09 13:05] LABS: #Basophils 0.1 thou/uL (0.0-0.2); #Eosinphils 0.1 thou/uL (0.0-0.7); #Lymphocytes 2.2 thou/uL (1.20-3.40); #Monocytes 0.5 thou/uL (0.11-0.59); #Neutrophils 5.6 thou/uL (1.40-6.50); %Basophils 0.7 % (0.0-1.0); %Eosinophils 0.6 % (0.0-10.0); %Monocytes 5.8 % (0.0-10.0); %Neutrophils 66.9 % (42.0-75.0); Hemoglobin 15.3 g/dL (12.0-16.0); Mean Corpuscular HGB CONC 35.1 g/dL (32.0-36.0); Mean Corpuscular Hemoglobin 32.5 pg (27.0-31.0); Mean Corpuscular Volume 92.7 fL (78.0-98.0); Mean Platelet Volume 8.1 fL (7.4-10.4); Platelet Count 236 thou/uL (130-400); RBC Distribution Width 11.4 % (11.5-14.5); Red Blood Cell (RBC) Count 4.69 mill/uL (4.20-5.40); White Blood Cell (WBC) Count 8.3 thou/uL (4.8-10.8)
--- NOTE | 2019-09-09 13:15 | ULT ---
Pelvic sonogram transabdominal and transvaginal imaging with duplex evaluation HISTORY: Pelvic pain and bleeding. FINDINGS: Urinary bladder is incompletely distended. Uterus has a heterogeneous echotexture and is 7. 3 cm. Endometrium is 0.9 cm. No free fluid. Each ovary has normal appearance with good color and spectral Doppler flow. IMPRESSION: Normal exam.
[2019-09-09 13:19] LABS: ALT (SGPT) 26 U/L (8-55); AST (SGOT) 16 U/L (5-34); Albumin 4.5 g/dL (3.5-5.0); Alkaline Phosphatase 112 U/L (40-110); Anion Gap 11 mmol/L (10-20); BUN (Urea Nitrogen) 9 mg/dL (7.0-18.7); Bilirubin, Total 0.7 mg/dL (0.2-1.2); Calc. Creatinine Clearance 0 mL/min (70-130); Carbon Dioxide 24 mmol/L (22-29); Chloride 106 mmol/L (98-107); Estimated GFR-MDRD Greater than 90; Globulin 2.7 g/dL (2.4-3.5); Glucose 90 mg/dL (70-105); Potassium 3.7 mmol/L (3.5-5.1); Protein, Total 7.2 g/dL (6.0-8.3); Sodium 137 mmol/L (136-145)
[2019-09-09] MEDS ORDERED: Acetaminophen 500 MG TAB ONE (13:34)
[2019-09-09] MEDS ORDERED: Ketorolac Tromethamine 30 MG/ML VIAL ONE (13:40)
[2019-09-11 14:09] LABS: Chlamydia by PCR Not Detected (NotDetected); GC by PCR Not Detected (NotDetected)
== END 2019-09-09 13:57 | disposition home or self-care (01) ==
LOC: ERS 11:51
DX: N93.9 Abnormal uterine and vaginal bleeding, unspecified (principal); F32.9 Major depressive disorder, single episode, unspecified
CPT/HCPCS: 76856; 80053; 84702; 85025; 86900; 86901; 87480; 87491; 87510; 87591; 87660; 96374; J1885

== ENCOUNTER 2020-05-05 16:45 | Emergency (ER) | payer SELFPAY ==
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
[2020-05-05] MEDS ORDERED: Acetaminophen 500 MG TAB ONE (18:48)
[2020-05-05] MEDS ORDERED: Ketorolac Tromethamine 30 MG/ML VIAL ONE (18:57)
== END 2020-05-05 19:08 | disposition home or self-care (01) ==
LOC: ERS 16:45
DX: S13.9XXA Sprain of joints and ligaments of unspecified parts of neck, initial encounter (principal); R51 Headache; F32.9 Major depressive disorder, single episode, unspecified; V89.2XXA Person injured in unspecified motor-vehicle accident, traffic, initial encounter
CPT/HCPCS: 70450; 72125; 96372; J1885

== ENCOUNTER 2020-12-23 11:14 | Emergency (ER) | payer OTHER, SELFPAY ==
[2020-12-23 11:55] LABS: #Basophils 0.1 thou/uL (0.0-0.2); #Eosinphils 0.1 thou/uL (0.0-0.7); #Lymphocytes 2.5 thou/uL (1.20-3.40); #Monocytes 0.5 thou/uL (0.11-0.59); %Basophils 0.6 % (0.0-1.0); %Eosinophils 0.7 % (0.0-10.0); %Lymphocytes 27.2 % (21.0-51.0); %Monocytes 5.9 % (0.0-10.0); %Neutrophils 65.6 % (42.0-75.0); Hemoglobin 14.9 g/dL (12.0-16.0); Mean Corpuscular HGB CONC 35.3 g/dL (32.0-36.0); Mean Corpuscular Hemoglobin 33.2 pg (27.0-31.0); Mean Corpuscular Volume 94.2 fL (78.0-98.0); Mean Platelet Volume 7.9 fL (7.4-10.4); Platelet Count 223 thou/uL (130-400); RBC Distribution Width 11.4 % (11.5-14.5); Red Blood Cell (RBC) Count 4.47 mill/uL (4.20-5.40); White Blood Cell (WBC) Count 9.1 thou/uL (4.8-10.8)
[2020-12-23 11:55] LABS: Bacteria/HPF None Seen HPF (None Seen); Bilirubin Negative (Negative); Blood, Urine Trace (Negative); Clarity Clear (Clear); Glucose, Urine (Dipstick) Normal (Negative); Ketone, Urine Negative (Negative); Leukocyte 250 Leu/uL (Negative); Nitrite Negative (Negative); Protein, Urine (Dipstick) Negative (Neg-Trace); RBC/HPF 0-3 HPF (0-3); Specific Gravity, Urine 1.019 (1.002-1.036); Urobilinogen Normal mg/dL (Less than 2); WBC/HPF 0-3 HPF (0-3)
== END 2020-12-23 13:15 | disposition home or self-care (01) ==
LOC: ERS 11:14
DX: O20.0 Threatened abortion (principal); Z3A.10 10 weeks gestation of pregnancy
CPT/HCPCS: 36415; 76856; 81003; 81015; 84702; 85025; 93976

== ENCOUNTER 2023-05-01 14:57 | Inpatient (IN) | payer OTHER ==
[~2023-05-01 14:57] MED LIST: Iopamidol-370 76% 500 ML MDV (1 ML CHARGE) ONE
[2023-05-01 15:38] LABS: #Monocytes 0.4 thou/uL (0.11-0.59); #Neutrophils 13.9 thou/uL (1.40-6.50); %Basophils 0.3 % (0.0-1.0); %Lymphocytes 10.3 % (21.0-51.0); %Monocytes 2.4 % (0.0-10.0); %Neutrophils 86.7 % (42.0-75.0); Hematocrit 46.9 % (36.0-47.0); Hemoglobin 17.2 g/dL (12.0-16.0); Mean Corpuscular HGB CONC 36.7 g/dL (32.0-36.0); Mean Corpuscular Hemoglobin 32.9 pg (27.0-31.0); Mean Corpuscular Volume 89.7 fl (78.0-98.0); Mean Platelet Volume 10.4 fL (7.4-10.4); Platelet Count 309 10x3/uL (130-400); RBC Distribution Width 11.9 % (11.5-14.5); Red Blood Cell (RBC) Count 5.23 mill/uL (4.20-5.40)
[2023-05-01] MEDS ORDERED: Ondansetron PF 4 MG/2 ML Vial ONE (15:48)
[2023-05-01] MEDS ORDERED: Ketorolac Tromethamine 30 MG/ML VIAL ONE (15:48)
[2023-05-01 16:04] LABS: Troponin I Less than 0.010 ng/mL (< 0.028)
[2023-05-01 16:07] LABS: ALT (SGPT) 34 U/L (8-55); AST (SGOT) 12 U/L (5-34); Albumin 5.3 g/dL (3.5-5.0); Alkaline Phosphatase 121 U/L (40-110); Anion Gap 22 mmol/L (10-20); BUN (Urea Nitrogen) 11 mg/dL (7.0-18.7); Bilirubin, Total 0.6 mg/dL (0.2-1.2); Calc. Creatinine Clearance 0 mL/min (70-130); Calcium 10.3 mg/dL (7.8-10.44); Carbon Dioxide 16 mmol/L (22-29); Chloride 105 mmol/L (98-107); Estimated GFR 101; Globulin 3.5 g/dL (2.4-3.5); Glucose 107 mg/dL (70-105); Lipase 31 U/L (8-78); Potassium 3.5 mmol/L (3.5-5.1); Protein, Total 8.8 g/dL (6.0-8.3); Sodium 139 mmol/L (136-145)
[2023-05-01] MEDS ORDERED: Cefepime 2 GM VIAL ONE (16:07)
[2023-05-01 16:50] LABS: SARS-CoV-2 NAA Rapid Test Not Detected (NotDetected)
[2023-05-01 16:54] LABS: Bilirubin Negative (Negative); Blood, Urine Negative (Negative); CAUTI Indications for Culture Fever or rigors; Clarity Clear (Clear); Glucose, Urine (Dipstick) Normal (Negative); Ketone, Urine 10 mg/dL (Negative); Leukocyte Negative Leu/uL (Negative); Nitrite 2+ (Negative); Protein, Urine (Dipstick) 20 mg/dL (Neg-Trace); Urobilinogen Normal mg/dL (Less than 2); WBC/HPF 0-3 HPF (0-3); pH, Urine 7.5 (5.0-9.0)
[2023-05-01 16:55] LABS: Bacteria/HPF 1+ HPF (None Seen); Specific Gravity, Urine 1.053 (1.002-1.036)
[2023-05-01 16:57] LABS: Urine Culture Reflex No No
[2023-05-01] MEDS ORDERED: Morphine 4 MG/ML VIAL ONE (17:22)
[2023-05-01] MEDS ORDERED: Senokot S 8.6-50 MG TAB PO PRN (17:51)
[2023-05-01] MEDS ORDERED: Acetaminophen 325 MG TAB PO PRN (17:51)
[2023-05-01] MEDS ORDERED: Morphine 4 MG/ML VIAL SLOW IVP PRN (18:15)
[2023-05-01 19:14] LABS: Lactic Acid 1.1 mmol/L (0.5-2.2)
[2023-05-01] MEDS: Morphine 2 MG/ML VIAL SLOW IVP PRN (20:58)
[2023-05-01] MEDS: Sodium Chloride 0.9% 1,000 ML IV SCH (20:59)
[2023-05-01] MEDS: Famotidine 20 MG TAB PO SCH (20:59)
[2023-05-01 21:09] VITALS: BMI 28.1
[2023-05-02] MEDS: Ondansetron ODT 8 MG TAB SL PRN ×2 (00:31→16:44)
[2023-05-02] MEDS: Sodium Chloride 0.9% 1,000 ML IV SCH ×3 (02:34→16:44)
[2023-05-02] MEDS: Morphine 2 MG/ML VIAL SLOW IVP PRN ×4 (03:54→19:19)
[2023-05-02] MEDS: Cefepime 2 GM in Sodium Chloride 0.9% 100 ML IVPB SCH ×2 (03:54→16:41)
[2023-05-02] MEDS: Famotidine 20 MG TAB PO SCH ×2 (08:46→21:00)
[2023-05-02 09:15] LABS: ALT (SGPT) 22 U/L (8-55); AST (SGOT) 11 U/L (5-34); Albumin 3.7 g/dL (3.5-5.0); Alkaline Phosphatase 84 U/L (40-110); Anion Gap 9 mmol/L (10-20); BUN (Urea Nitrogen) 10 mg/dL (7.0-18.7); Bilirubin, Total 0.7 mg/dL (0.2-1.2); Calc. Creatinine Clearance 124 mL/min (70-130); Calcium 8.5 mg/dL (7.8-10.44); Carbon Dioxide 24 mmol/L (22-29); Chloride 109 mmol/L (98-107); Estimated GFR 120; Globulin 2.2 g/dL (2.4-3.5); Glucose 89 mg/dL (70-105); Potassium 3.4 mmol/L (3.5-5.1); Protein, Total 5.9 g/dL (6.0-8.3); Sodium 139 mmol/L (136-145)
[2023-05-02 10:47] LABS: #Eosinphils 0.1 thou/uL (0.0-0.7); #Monocytes 0.5 thou/uL (0.11-0.59); #Neutrophils 4.2 thou/uL (1.40-6.50); %Basophils 0.4 % (0.0-1.0); %Eosinophils 1.4 % (0.0-10.0); %Lymphocytes 36.6 % (21.0-51.0); %Monocytes 6.3 % (0.0-10.0); Mean Corpuscular HGB CONC 35.9 g/dL (32.0-36.0); Mean Corpuscular Hemoglobin 33.2 pg (27.0-31.0); Mean Platelet Volume 10.4 fL (7.4-10.4); RBC Distribution Width 12.4 % (11.5-14.5); Red Blood Cell (RBC) Count 3.98 mill/uL (4.20-5.40); White Blood Cell (WBC) Count 7.7 10x3/uL (4.8-10.8)
[2023-05-02 10:55] LABS: Hematocrit 36.8 % (36.0-47.0); Hemoglobin 13.2 g/dL (12.0-16.0); Mean Corpuscular Volume 92.5 fl (78.0-98.0)
[2023-05-02 10:56] LABS: Platelet Count 195 10x3/uL (130-400)
[2023-05-03] MEDS: Sodium Chloride 0.9% 1,000 ML IV SCH ×3 (00:09→16:46)
[2023-05-03] MEDS: Morphine 2 MG/ML VIAL SLOW IVP PRN ×4 (00:10→16:55)
[2023-05-03] MEDS: Cefepime 2 GM in Sodium Chloride 0.9% 100 ML IVPB SCH ×2 (03:56→15:24)
[2023-05-03] MEDS: Famotidine 20 MG TAB PO SCH ×2 (09:24→20:37)
[2023-05-03] MEDS: Ondansetron ODT 8 MG TAB SL PRN (09:24)
[2023-05-04] MEDS: Morphine 2 MG/ML VIAL SLOW IVP PRN (02:05)
[2023-05-04] MEDS: Sodium Chloride 0.9% 1,000 ML IV SCH ×2 (02:05→11:13)
[2023-05-04] MEDS: Cefepime 2 GM in Sodium Chloride 0.9% 100 ML IVPB SCH (04:17)
[2023-05-04] MEDS: Famotidine 20 MG TAB PO SCH (08:19)
[2023-05-04 12:12] VITALS: BP 101/58; TEMP 97.7
== END 2023-05-04 12:49 | disposition home or self-care (01) | DRG 392 ==
LOC: ERS 14:57 → T4-A 17:55
PROVIDERS: ADMIT Family Medicine; ATTEND Internal Medicine
DX: K52.9 Noninfective gastroenteritis and colitis, unspecified (principal); E87.20 Acidosis, unspecified; F32.A Depression, unspecified; N83.209 Unspecified ovarian cyst, unspecified side; N20.0 Calculus of kidney; Z20.822 Contact with and (suspected) exposure to COVID-19; B96.20 Unspecified Escherichia coli [E. coli] as the cause of diseases classified elsewhere; E86.0 Dehydration; Z90.710 Acquired absence of both cervix and uterus; Z90.49 Acquired absence of other specified parts of digestive tract; Z79.84 Long term (current) use of oral hypoglycemic drugs; Z79.899 Other long term (current) drug therapy
CPT/HCPCS: 36415; 71045; 74177; 80053; 81001; 83605; 83690; 84484; 85025; 87040; 87077; 87086; 87186; 93005; 94760; 96361; 96365; 96375; J0692; J1650; J1885; J2270; J2272; J2405; J3490; J7050; Q0162; Q9967; U0002

== ENCOUNTER 2023-05-04 20:00 | Emergency (ER) | payer OTHER ==
[2023-05-04] MEDS ORDERED: Ondansetron PF 4 MG/2 ML Vial ONE (20:43)
[2023-05-04] MEDS ORDERED: Ketorolac Tromethamine 30 MG/ML VIAL ONE (20:43)
[2023-05-04] MEDS ORDERED: Morphine 4 MG/ML VIAL ONE (21:04)
[2023-05-04 21:21] LABS: #Eosinphils 0.1 thou/uL (0.0-0.7); #Monocytes 0.4 thou/uL (0.11-0.59); #Neutrophils 6.1 thou/uL (1.40-6.50); %Basophils 0.5 % (0.0-1.0); %Eosinophils 0.8 % (0.0-10.0); %Lymphocytes 25.5 % (21.0-51.0); %Monocytes 4.5 % (0.0-10.0); %Neutrophils 68.4 % (42.0-75.0); Hematocrit 40.4 % (36.0-47.0); Mean Corpuscular HGB CONC 37.1 g/dL (32.0-36.0); Mean Corpuscular Hemoglobin 33.2 pg (27.0-31.0); Mean Corpuscular Volume 89.4 fl (78.0-98.0); Mean Platelet Volume 10.4 fL (7.4-10.4); Platelet Count 239 10x3/uL (130-400); RBC Distribution Width 11.7 % (11.5-14.5); Red Blood Cell (RBC) Count 4.52 mill/uL (4.20-5.40); White Blood Cell (WBC) Count 8.9 10x3/uL (4.8-10.8)
[2023-05-04 21:45] LABS: ALT (SGPT) 26 U/L (8-55); AST (SGOT) 16 U/L (5-34); Albumin 4.5 g/dL (3.5-5.0); Alkaline Phosphatase 102 U/L (40-110); Anion Gap 18 mmol/L (10-20); BUN (Urea Nitrogen) 11 mg/dL (7.0-18.7); Bilirubin, Total 0.4 mg/dL (0.2-1.2); Calc. Creatinine Clearance 0 mL/min (70-130); Calcium 9.8 mg/dL (7.8-10.44); Carbon Dioxide 21 mmol/L (22-29); Chloride 104 mmol/L (98-107); Estimated GFR 120; Globulin 2.8 g/dL (2.4-3.5); Glucose 93 mg/dL (70-105); Lipase 34 U/L (8-78); Potassium 3.3 mmol/L (3.5-5.1); Protein, Total 7.3 g/dL (6.0-8.3); Sodium 140 mmol/L (136-145)
[2023-05-04 21:45] LABS: Bacteria/HPF None Seen HPF (None Seen); Bilirubin Negative (Negative); Blood, Urine Negative (Negative); CAUTI Indications for Culture Pelvic or flank pain; Clarity Clear (Clear); Glucose, Urine (Dipstick) Normal (Negative); Ketone, Urine Negative (Negative); Leukocyte Negative Leu/uL (Negative); Nitrite Negative (Negative); Protein, Urine (Dipstick) Negative (Neg-Trace); RBC/HPF 0-3 HPF (0-3); Specific Gravity, Urine 1.011 (1.002-1.036); Squamous Epithelial 0-3 HPF (0-3); Urobilinogen Normal mg/dL (Less than 2); WBC/HPF 0-3 HPF (0-3); pH, Urine 7.5 (5.0-9.0)
[2023-05-04 21:47] LABS: Pregnancy Test - Urine (BHCG) Negative (Negative); Pregu Control Background? CLEAR/WHITE (CLR/WHITE); Pregu Control Bar Appear? YES (CONTROL BAR); Specific Gravity 1.011 (1.002-1.036)
[2023-05-04 21:49] LABS: Urine Culture Reflex No No
[2023-05-04] MEDS ORDERED: Potassium Chloride 20 MEQ TAB ONE (22:15)
[2023-05-04 22:56] LABS: Magnesium 1.8 mg/dL (1.6-2.6)
== END 2023-05-04 23:11 | disposition home or self-care (01) ==
LOC: ERS 20:00
DX: N83.201 Unspecified ovarian cyst, right side (principal)
CPT/HCPCS: 36415; 74177; 76856; 80053; 81001; 81025; 83605; 83690; 83735; 85025; 96374; 96375; J1885; J2270; J2405; Q9967

== ENCOUNTER 2024-07-26 12:45 | Emergency (ER) | payer OTHER, SELFPAY ==
[2024-07-26] MEDS ORDERED: diphenhydrAMINE 50 MG/ML VIAL ONE (14:23)
[2024-07-26] MEDS ORDERED: Acetaminophen 500 MG TAB ONE (14:25)
[2024-07-26] MEDS ORDERED: Metoclopramide HCl 10 MG (2 mL) VIAL ONE (14:25)
[2024-07-26] MEDS ORDERED: Ibuprofen 200 MG TAB ONE (14:29)
[2024-07-26 14:42] LABS: Bilirubin Negative (Negative); Blood, Urine Negative (Negative); CAUTI Indications for Culture Alt mental st,lethar; Clarity Clear (Clear); Glucose, Urine (Dipstick) Normal (Negative); Ketone, Urine Trace mg/dL (Negative); Leukocyte 25 Leu/uL (Negative); Nitrite Negative (Negative); Protein, Urine (Dipstick) 30 mg/dL (Neg-Trace); RBC/HPF 0-3 HPF (0-3); Specific Gravity, Urine 1.026 (1.002-1.036); Transitional Epithelial 0-3 HPF (None Seen); pH, Urine 7.5 (5.0-9.0)
[2024-07-26 14:48] LABS: Pregnancy Test - Urine (BHCG) Negative (Negative); Pregu Control Background? CLEAR/WHITE (CLR/WHITE); Pregu Control Bar Appear? YES (CONTROL BAR); Specific Gravity 1.026 (1.002-1.036)
[2024-07-26 14:54] LABS: Bacteria/HPF 1+ HPF (None Seen)
[2024-07-26 14:55] LABS: Urine Culture Reflex No No
[2024-07-26] MEDS ORDERED: Morphine 4 MG/ML VIAL ONE (16:02)
[2024-07-26] MEDS ORDERED: Magnesium 2 GM/50 ML BAG (IN WATER) ONE (16:03)
== END 2024-07-26 17:25 | disposition home or self-care (01) ==
LOC: ERS 12:45
DX: J10.1 Influenza due to other identified influenza virus with other respiratory manifestations (principal); R51.9 Headache, unspecified; Z55.6 Problems related to health literacy
CPT/HCPCS: 81001; 81025; 87428; 93005; 96365; 96375; J1200; J2272; J2765; J3475

== ENCOUNTER → 2024-07-28 | Emergency (ER) | payer SELFPAY ==
[2024-08-01 15:41] LABS: BHCG - Serum Negative (NEGATIVE); Pregs Control Background? CLEAR/WHITE (CLR/WHITE); Pregs Control Bar Appear? YES (CONTROL BAR)
[2024-08-01 15:43] LABS: Troponin I Less than 0.010 ng/mL (< 0.028)
[2024-08-01 15:45] LABS: Anion Gap 17 mmol/L (10-20); BUN (Urea Nitrogen) 6 mg/dL (7.0-18.7); Calc. Creatinine Clearance 0 mL/min (70-130); Carbon Dioxide 18 mmol/L (22-29); Chloride 103 mmol/L (98-107); Estimated GFR 96; Glucose 117 mg/dL (70-105); Potassium 3.1 mmol/L (3.5-5.1); Sodium 135 mmol/L (136-145)
[2024-08-01 15:46] LABS: ALT (SGPT) 31 U/L (8-55); AST (SGOT) 35 U/L (5-34); Acetaminophen Less than 10 mcg/mL (Less than 10); Albumin 4.1 g/dL (3.5-5.0); Alcohol Less than 10.0 mg/dL (Less than 10); Alkaline Phosphatase 117 U/L (40-110); Bilirubin, Total 0.6 mg/dL (0.2-1.2); CRP,High Sensitivity (Inhouse) 10.59 mg/dL (< or = 0.5); Globulin 3.7 g/dL (2.4-3.5); Lipase 53 U/L (8-78); Magnesium 1.9 mg/dL (1.6-2.6); Protein, Total 7.8 g/dL (6.0-8.3); Salicylate Less than 8.0 mg/dL (Less than 8.0)
[2024-08-02 08:32] LABS: #Neutrophils 8.67 10x3/uL (1.40-6.50); %Basophils 0.2 % (0.0-1.0); %Lymphocytes 8.1 % (21.0-51.0); %Monocytes 4.4 % (0.0-10.0); %Neutrophils 86.8 % (42.0-75.0); Hematocrit 40.5 % (36.0-47.0); Hemoglobin 15.2 g/dL (12.0-16.0); Mean Corpuscular HGB CONC 37.5 g/dL (32.0-36.0); Mean Corpuscular Hemoglobin 32.9 pg (27.0-31.0); Mean Corpuscular Volume 87.7 fL (78.0-98.0); Mean Platelet Volume 11.3 fL (7.4-10.4); Platelet Count 161 10x3/uL (130-400); RBC Distribution Width 11.9 % (11.5-14.5); Red Blood Cell (RBC) Count 4.62 mill/uL (4.20-5.40); White Blood Cell (WBC) Count 9.99 10x3/uL (4.8-10.8)
[2024-08-02 08:33] LABS: #Basophils 0.02 10x3/uL (0.0-0.2); #Monocytes 0.44 10x3/uL (0.11-0.59); D-Dimer Test 0.92 mcg/mL (0.27-0.43); Prothrombin Time 13.1 sec (12.0-14.7)
== END ==
LOC: ERS 12:04
DX: R51.9 Headache, unspecified (principal); R05.9 Cough, unspecified; R00.0 Tachycardia, unspecified
CPT/HCPCS: 80053; 80307; 83690; 83735; 83880; 84484; 84703; 85025; 85379; 85610; 85730; 86141; 87040; 87428; 93005; 96365; 96366; 96368; 96375

== ENCOUNTER 2025-03-17 12:01 | Emergency (ER) | payer SELFPAY ==
[2025-03-17 12:54] LABS: Bacteria/HPF None Seen HPF (None Seen); Glucose, Urine (Dipstick) Normal (Negative); Leukocyte Negative Leu/uL (Negative); Protein, Urine (Dipstick) Negative (Neg-Trace); RBC/HPF 0-3 HPF (0-3); Specific Gravity, Urine 1.019 (1.002-1.036); WBC/HPF 0-3 HPF (0-3)
[2025-03-17] MEDS ORDERED: Ketorolac Tromethamine 30 MG (1 mL) VIAL ONE (13:18)
[2025-03-17] MEDS ORDERED: Ondansetron PF 4 MG/2 ML Vial ONE (13:18)
[2025-03-17] MEDS ORDERED: Iopamidol-370 76% 500 ML MDV (1 ML CHARGE) ONE (13:20)
[2025-03-17 13:48] LABS: #Basophils 0.03 10x3/uL (0.0-0.2); #Eosinophils 0.06 10x3/uL (0.0-0.7); #Monocytes 0.41 10x3/uL (0.11-0.59); #Neutrophils 4.12 10x3/uL (1.40-6.50); %Basophils 0.5 % (0.0-1.0); %Eosinophils 1.0 % (0.0-10.0); %Lymphocytes 25.0 % (21.0-51.0); %Monocytes 6.6 % (0.0-10.0); %Neutrophils 66.7 % (42.0-75.0); Hematocrit 40.9 % (36.0-47.0); Hemoglobin 14.3 g/dL (12.0-16.0); Mean Corpuscular Hemoglobin 32.3 pg (27.0-31.0); Mean Corpuscular Volume 92.3 fL (78.0-98.0); Platelet Count 240 10x3/uL (130-400); Red Blood Cell (RBC) Count 4.43 mill/uL (4.20-5.40); White Blood Cell (WBC) Count 6.17 10x3/uL (4.8-10.8)
[2025-03-17 14:03] LABS: ALT (SGPT) 15 U/L (Less than 34); AST (SGOT) 18 U/L (11-34); Albumin 4.2 g/dL (3.1-4.5); Alkaline Phosphatase 94 U/L (40-110); Anion Gap 10 mmol/L (10-20); BUN (Urea Nitrogen) 13 mg/dL (7.0-18.7); Bilirubin, Total 0.7 mg/dL (0.3-1.2); Calc. Creatinine Clearance 0 mL/min (70-130); Calcium 9.0 mg/dL (7.8-10.44); Carbon Dioxide 24 mmol/L (22-29); Chloride 107 mmol/L (98-107); Globulin 3.1 g/dL (2.4-3.5); Glucose 80 mg/dL (70-105); Potassium 4.1 mmol/L (3.5-5.1); Sodium 137 mmol/L (136-145)
== END 2025-03-17 15:37 | disposition home or self-care (01) ==
LOC: ERS 12:01
DX: N83.201 Unspecified ovarian cyst, right side (principal)
CPT/HCPCS: 74177; 76856; 80053; 81001; 85025; 96374; 96375; J1885; J2405; Q9967

== ENCOUNTER 2025-08-05 19:43 | Emergency (ER) | payer SELFPAY ==
[2025-08-05 20:25] LABS: #Basophils Less than 0.03 10x3/uL (0.0-0.2); #Eosinophils Less than 0.03 10x3/uL (0.0-0.7); #Monocytes 0.54 10x3/uL (0.11-0.59); #Neutrophils 4.83 10x3/uL (1.40-6.50); %Basophils 0.3 % (0.0-1.0); %Eosinophils 0.3 % (0.0-10.0); %Lymphocytes 19.3 % (21.0-51.0); %Monocytes 8.0 % (0.0-10.0); %Neutrophils 71.8 % (42.0-75.0); Hematocrit 41.8 % (36.0-47.0); Hemoglobin 14.7 g/dL (12.0-16.0); Mean Corpuscular Hemoglobin 31.5 pg (27.0-31.0); Mean Corpuscular Volume 89.7 fL (78.0-98.0); Platelet Count 213 10x3/uL (130-400); Red Blood Cell (RBC) Count 4.66 mill/uL (4.20-5.40); White Blood Cell (WBC) Count 6.73 10x3/uL (4.8-10.8)
[2025-08-05 20:27] LABS: Glucose, Urine (Dipstick) Negative (Negative); Leukocyte Negative (Negative); Protein, Urine (Dipstick) Negative (Neg-Trace); Specific Gravity, Urine 1.025 (1.005-1.030)
[2025-08-05 20:29] LABS: Bacteria/HPF None Seen HPF (None Seen); CAUTI Indications for Culture Acute Hematuria; RBC/HPF 0-3 HPF (0-3); WBC/HPF 0-3 HPF (0-3)
[2025-08-05 20:30] LABS: Urine Culture Reflex No No
[2025-08-05 20:39] LABS: INR-International Normal Ratio 0.9; PTT 26.0 sec (22.9-36.1); Prothrombin Time 12.7 sec (12.0-14.7)
[2025-08-05 20:40] LABS: ALT (SGPT) 20 U/L (Less than 34); AST (SGOT) 22 U/L (11-34); Albumin 4.3 g/dL (3.1-4.5); Alkaline Phosphatase 112 U/L (40-110); Anion Gap 14 mmol/L (10-20); BUN (Urea Nitrogen) 10 mg/dL (7.0-18.7); Bilirubin, Total 0.4 mg/dL (0.3-1.2); Calc. Creatinine Clearance 0 mL/min (70-130); Calcium 9.0 mg/dL (7.8-10.44); Carbon Dioxide 23 mmol/L (22-29); Chloride 106 mmol/L (98-107); Globulin 3.1 g/dL (2.4-3.5); Glucose 95 mg/dL (70-105); Potassium 3.5 mmol/L (3.5-5.1); Sodium 139 mmol/L (136-145)
[2025-08-05] MEDS ORDERED: Acetaminophen 500 MG TAB ONE (21:02)
== END 2025-08-05 23:15 | disposition home or self-care (01) ==
LOC: ERS 19:43
DX: R07.89 Other chest pain (principal); J06.9 Acute upper respiratory infection, unspecified
CPT/HCPCS: 36415; 71045; 71275; 80053; 81001; 83605; 84484; 85025; 85379; 85610; 85730; 87040; 87428; 93005; 96374; Q9967